=== PATIENT | female | born 1950 | race African-American/Black ===

== ENCOUNTER 2016-04-17 08:36 | Outpatient (CLI) | payer OTHER ==
[2016-04-17 09:30] LABS: eGFR (African) > 60; eGFR (Non-African) > 60
== END 2016-04-17 08:37 ==
LOC: LAB 08:36
PROVIDERS: ATTEND Family Medicine
DX: I10 Essential (primary) hypertension (principal); E78.5 Hyperlipidemia, unspecified; E03.9 Hypothyroidism, unspecified
CPT/HCPCS: 36415; 80053; 80061; 84443

== ENCOUNTER 2016-05-03 14:26 | Inpatient (IN) | payer OTHER ==
[2016-05-03] MEDS ORDERED: IPRATROPIUM/ALBUTEROL SULFATE 3 ML AMPUL.NEB NEB ONE (14:49)
[2016-05-03 15:16] LABS: BASOPHILS % 0.9 (0.0-1.5); EOSINOPHILS % 2.9 % (0.0-6.8); LYMPHOCYTES # 2.9 # k/uL (0.6-4.0); MONOCYTES # 0.4 # k/uL (0.0-0.9); MONOCYTES % 4.9 % (0.0-11.0); NEUTROPHILS # 3.1 # k/uL (1.4-7.7)
[2016-05-03] MEDS ORDERED: ALBUTEROL SULFATE 2.5 MG/3 ML AMPUL.NEB NEB ONE (15:20)
[2016-05-03 15:32] LABS: eGFR (African) > 60; eGFR (Non-African) > 60
[2016-05-03] MEDS ORDERED: 0.9 % SODIUM CHLORIDE 1,000 ML IV ONE (16:16)
--- NOTE | 2016-05-03 16:33 | Diagnostic Imaging Report ---
[facility] [address] [facility].[address] [address] ~ ~ ~ ~ Report Submission Date: May 03, 2016 4:10:03 PM MECHANICAL FACILITIES TECHNICIAN Patient ~ Study Name: CASI MARIE ~ Date: May 03, 2016 3:38:56 PM MECHANICAL FACILITIES TECHNICIAN ~ Modality Type: CR Gender: F ~ Description: CHEST : 50 ~ Institution: [facility] Physician: DIOMEDES DILL ~ ~ ~ ~ 2 views the chest Clinical history: Dyspnea Findings: The heart size within normal limits. There is no pleural the effusion or pneumothorax. There is mild atelectasis or infiltrate left lung base. Impression: Atelectasis or infiltrate in the left lung base ~ Electronically signed on May 03, 2016 4:10:03 PM MECHANICAL FACILITIES TECHNICIAN by: Du WORRELL
[2016-05-03] MEDS ORDERED: LEVOFLOXACIN 500MG/D5W 100ML 500 MG in PREMIX BAG 1 BAG IV ONE ×2 (16:35→18:47)
[2016-05-03] MEDS ORDERED: LEVOFLOXACIN 250MG/D5W 50ML 250 MG in PREMIX BAG 1 BAG IV ONE (16:35)
[2016-05-03] MEDS ORDERED: methylPREDNISolone SOD SUCC 125 MG/2 ML VIAL IVP ONE (17:05)
[2016-05-03] MEDS ORDERED: LEVOFLOXACIN 500MG/D5W 100ML 100 ML IV ONE (17:18)
[2016-05-03] MEDS ORDERED: LEVOFLOXACIN 250MG/D5W 50ML 50 ML IV ONE (17:18)
--- NOTE | 2016-05-03 18:23 | History and Physical Report ---
History of Present Illnes - History of Present Illness Reason for Visit: dyspnea History of Present Illness: 65-year-old -[place] female with a one week history of upper respiratory symptoms. Patient stated over last 2 days she has developed fever, chills and productive cough up some green to yellow phlegm. Patient was having some increasing dyspnea. Patient subsequently came to the emergency room for evaluation. In the emergency room patient was found to be hypoxic with an SaO2 of 85%. Patient was found to have a pulmonary infiltrate. Patient was subsequently admitted to the hospital for further evaluation and treatment. - Past Medical History Cardiac: CAD, HTN Endocrine: Hypothyroidism - Past Surgical History Past Surgical History: Other (Coronary stenting, Breast papilloma removed) - Past Family History Father Family History: Cancer (pancreatic), (67yo) Mother Family History: (dementia) Brother 1 Family History: Cancer (lung), (47yo) - Past Social History Smoke: <1 pack per day Alcohol: None Drugs: None Lives: With Family Domestic Violence: Negative - Health Maintenance Health Maintenance: Tetanus, Influenza Vaccine, Pneumococcal Vaccine Influenza Vaccine: Current for this Influenza Season Pneumonia Vaccine: Yes Resuscitation Status: FULL CODE - Unable to Obtain History Unable to Obtain: No Review of Systems - Review of Systems Constitutional: Fever, Chills, Weakness. negative: Malaise Eyes: negative: pain, vision change, conjunctivae inflammation ENT: Nose Discharge (clear to yellow), Nose Congestion. negative: Ear Pain, Ear Discharge, Nose Pain, Mouth Pain, Mouth Swelling, Throat Pain Respiratory: Cough, Shortness of Breath, SOB with Excertion, Sputum (green), Wheezing. negative: Hemoptysis, Pleuritic Pain Cardiovascular: negative: Chest Pain, Palpitations, Orthopnea, Paroxysmal Noc. Dyspnea, Edema, Light Headedness Gastrointestinal: negative: Nausea, Vomiting, Abdominal Pain, Diarrhea, Constipation, Melena, Hematochezia Genitourinary: negative: Dysuria, Frequency, Incontinence, Hematuria Musculoskeletal: Shoulder Pain Skin: negative: Rash Neurological: negative: Weakness, Numbness, Incoordination, Change in Speech, Confusion, Seizures - Medications/Allergies Allergies/Adverse Reactions: Allergies Allergy/AdvReac Type Severity Reaction Status Date / Time No Known Drug Allergies Allergy Unknown Verified 05/03/16 15:40 Current Inpatient Medications: Current Inpatient Medications Sodium Chloride (Normal Saline) 1,000 mls @ 100 mls/hr IV NOW ONE Stop: 05/04/16 02:15 Last Admin: 05/03/16 17:28 Dose: 100 mls/hr Exam - Exam General: Alert, Oriented to Person, Oriented to Place, Oriented to Time, Cooperative, Moderate distress HEENT: Atraumatic, PERRLA, EOMI, Mouth Mucous membr. moist/[place], Nose Mucous membr. moist/[place], Dentition Normal, Hearing Grossly Normal. No: Pharyngeal Erythema Neck: Normal Range of Motion Carotids: WNL Thyroid: WNL Lungs: Speaks full Sentences, Respiratory Distress, Wheezes, Rales (LLL), Rhonchi (scattered bialat). No: Normal air movement Cardiovascular: Regular rate, Normal S1, Normal S2, No murmurs. No: Gallops, Murmur Abdomen: Normal bowel sounds, Soft, No tenderness, No hepatospenomegaly, No masses. No: Distended Integumentary: Normal, [place], Warm, Dry Extremities: No cyanosis, No edema, Normal pulses, No tenderness/swelling, Other (mild clubbing) Neurological: Normal gait, Normal speech, Strength Equal Bilat, Normal tone, Sensation intact, Cranial nerves 3-12 NL, Reflexes 2+ Psych/Mental Status: Mental status NL, Mood NL, Appropriate Affect, Intact Judgment Assessment/Plan - Assessment/Plan (1) CAP (community acquired pneumonia) Status: Acute Assessment: Will start supplemental oxygen, IV antibiotics, Duoneb treatments. (2) Hypothyroid Status: Chronic Qualifiers: Hypothyroidism type: acquired Qualified Code(s): E03.9 - Hypothyroidism, unspecified Narrative Support Text: continue home med (3) Tobacco dependence Status: Chronic Assessment: Patient will be encourage to stop smoking (4) Essential hypertension Status: Chronic Assessment: continue with home meds VTE Assessment - RISK FACTOR SCORE VTE RISK FACTOR SCORES: AGE 40-60 YEARS, ACUTE RESPIRATORY FAILURE/SEVERE COPD - RISK VTE MODERATE RISK: SCORE OF 2 (RISK PROXIMAL DVT 2-4%) PROPHYAXIS NEEDED
[2016-05-03] MEDS ORDERED: ACETAMINOPHEN 325 MG TABLET PO PRN (18:52)
[2016-05-03] MEDS ORDERED: diphenhydrAMINE HCL 25 MG TABLET PO PRN (18:53)
[2016-05-03] MEDS ORDERED: LATANOPROST 0.005% OPTH DROP OP SCH (19:00)
[2016-05-03] MEDS ORDERED: 0.9 % SODIUM CHLORIDE 250 ML IV ONE (19:36)
[2016-05-03] MEDS ORDERED: AZITHROMYCIN 500 MG VIAL IV ONE (19:36)
[2016-05-03] MEDS ORDERED: ENOXAPARIN SODIUM 30 MG/0.3 ML DISP.SYRIN SQ ONE (19:38)
[2016-05-03 20:29] VITALS: BMI 38.7
[2016-05-03] MEDS: AZITHROMYCIN 500 MG in 0.9 % SODIUM CHLORIDE 250 ML IV SCH (21:27)
[2016-05-03] MEDS: IPRATROPIUM/ALBUTEROL SULFATE 3 ML AMPUL.NEB NEB SCH (21:35)
[2016-05-03] MEDS: ENOXAPARIN SODIUM 30 MG/0.3 ML DISP.SYRIN SQ SCH (21:38)
[2016-05-03] MEDS: methylPREDNISolone SOD SUCC 40 MG/ML VIAL IVP SCH (23:21)
--- NOTE | 2016-05-03 23:54 | ED Physician Documentation ---
Dyspnea - HISTORIAN Historian: patient, other (family) - HPI Stated Complaint: cough, SOA Chief Complaint: Asthma Duration: continues in ED, worse Initiating Event: upper respiratory illness Severity: severe Exacerbated By: exertion, laying flat, coughing Associated Symptoms: chills, fever, productive cough. denies: chest pain, chest discomfort, bloody cough, heart racing, leg pain, calf pain, dizziness, light-headedness, anxiety, hands tingling, face tingling, muscle spasms Further Comments: yes (65 year old female patient presents with complaints of dyspnea, cough, fever and chills. Patient states she has been sick for the past week, but worsein the past 2 days.) - ROS CONST: recent illness EYES/ENT: none GI/: none NEURO/PSYCH: denies: headache MS/SKIN/LYMPH: none - PAST HX Lung Disease: none Cardiac Disease: other (HLD, HTN) PE Risk Factors: hypertension Other History: other (Hypothyroidism, OA) Immunizations: influenza (UTD), pneumovax (UTD), UTD Allergies/Adverse Reactions: Allergies Allergy/AdvReac Type Severity Reaction Status Date / Time No Known Drug Allergies Allergy Unknown Verified 05/03/16 15:40 Home Medications: Ambulatory Orders Medication Instructions Recorded Aspirin [Aspir 81] 81 mg PO DAILY u2 04/12/15 - SOCIAL HX Smoking History: cigarettes - FAMILY HX Family History: denies: none - VITAL SIGNS Vital Signs: Vital Signs Temp Pulse Resp BP Pulse Ox 97.4 F L 75 25 H 159/87 93 05/03/16 18:51 05/03/16 18:51 05/03/16 18:51 05/03/16 18:51 05/03/16 18:51 - REVIEWED ASSESSMENTS Nursing Assessment Reviewed: Yes Vitals Reviewed: Yes Progress - Progress Progress: Reviewed lab and xray results with patient and family. Chest xray with early LL infiltrate, Solumedrol IV started for wheezing. Patient initially preferred transfer to [place], changed her mind and requested admission at [facility] with Dr Albert. Call to Dr Albert, patient accepted. Started on Levaquin IV for pneumonia. Will continue neb treatments and O2 on floor. ED Results Lab/Radiology - Lab Results Lab Results: Lab Results 05/03/16 05/03/16 05/03/16 15:30 15:05 15:05 WBC 7.00 K/ul K/ul (4.00-12.00) RBC 6.16 M/ul H M/ul (3.90-5.20) Hgb 18.4 g/dL H g/dL (12.0-16.0) Hct 52.5 % H % (34.5-46.5) MCV 85.3 fl fl (80.0-100.0) MCH 30.0 pg pg (28.0-34.0) MCHC 35.1 g/dL g/dL (30.0-36.0) RDW 14.8 % H % (11.3-14.3) Plt Count 264 K/mm3 K/mm3 (130-400) Neut % (Auto) 44.7 % % (39.0-79.0) Lymph % (Auto) 41.8 % % (16.0-50.0) [place] % (Auto) 4.9 % % (0.0-11.0) Eos % (Auto) 2.9 % % (0.0-6.8) Baso % (Auto) 0.9 (0.0-1.5) Neut # 3.1 # k/uL # k/uL (1.4-7.7) Lymph # 2.9 # k/uL # k/uL (0.6-4.0) [place] # 0.4 # k/uL # k/uL (0.0-0.9) Eos # 0.2 # k/uL # k/uL (0.0-0.6) Baso # 0.1 # k/uL # k/uL (0.0-0.5) Reactive Lymphs % 4.8 % % (0.0-5.0) Reactive Lymphs # 0.3 # k/uL # k/uL (0.0-0.8) Sodium 138 mmol/L mmol/L (136-145) Potassium 4.1 mmol/L mmol/L (3.5-5.0) Chloride 105 mmol/L mmol/L (98-110) Carbon Dioxide 30 mmol/L mmol/L (20-32) BUN 9 mg/dL L mg/dL (10-26) Creatinine 0.6 mg/dL mg/dL (0.4-1.5) Est GFR ( Amer) > 60 (60 - ) Est GFR (Non-Af Amer) > 60 (60 - ) Glucose 106 mg/dL H mg/dL (70-99) Calcium 9.9 mg/dL mg/dL (8.5-10.5) Total Bilirubin 0.7 mg/dL mg/dL (0.2-1.2) AST 31 U/L U/L (0-41) ALT 22 U/L U/L (0-45) Alkaline Phosphatase 91 U/L U/L (46-116) Total Protein 8.2 g/dL g/dL (6.0-8.5) Albumin 4.6 g/dL g/dL (3.0-5.5) Influenza Type A Ag Negative (NEGATIVE) Influenza Type B Ag Negative (NEGATIVE) - Orders Orders: ED Orders Category Date Time Status Continuous Pulse Oximetry Q4 Care 05/03/16 14:[address] Saline Lock/IV NOW Care 05/03/16 14:49 Active CHEST 2 VIEW [CHEST P.A.&LAT 2 VIEWS] [RAD] Stat Exams 05/03/16 Completed BLOOD CULTURE Stat Lab 05/03/16 15:05 Received BLOOD CULTURE Stat Lab 05/03/16 16:45 Received CBC/PLATELET/DIFF Stat Lab 05/03/16 15:05 Completed CMP Stat Lab 05/03/16 15:05 Completed INFLUENZA A&B Routine Lab 05/03/16 15:30 Completed INFLUENZA A&B Stat Lab 05/03/16 Uncollected 0.9 % Sodium Chloride [Normal Saline] 1,000 ml Med 05/03/16 16:16 Active IV NOW Albuterol Sulfate [Ventolin] Med 05/03/16 15:20 Discontinued 2.5 mg NEB NOW ONE Ipratropium/Albuterol Sulfate [Duoneb] Med 05/03/16 14:49 Discontinued 3 ml NEB NOW ONE Levofloxacin 250Mg/D5w 50Ml [Levaquin] 250 mg Med 05/03/16 16:35 Discontinued Premix Bag [Premix Fluid] 1 bag IV NOW Levofloxacin 250Mg/D5w 50Ml [Levaquin] 50 ml Med 05/03/16 17:18 Discontinued IV .STK-MED Levofloxacin 500Mg/D5w 100Ml [Levaquin] 100 ml Med 05/03/16 17:18 Discontinued IV .STK-MED Levofloxacin 500Mg/D5w 100Ml [Levaquin] 500 mg Med 05/03/16 16:35 Discontinued Premix Bag [Premix Fluid] 1 bag IV NOW methylPREDNISolone SOD SUCC [Solu-MEDROL] Med 05/03/16 17:05 Discontinued 62.5 mg IVP NOW ONE Oxygen Daily Oxygen 05/03/16 15:00 Ordered EKG WITH COMPARISON Stat Ther 05/03/16 14:49 Ordered Dyspnea Physical Exam - EXAM General Appearance: mild distress EENT: eye inspection normal, ENT inspection normal, pharynx normal, no signs of dehydration, SHAHID, no nystagmus, TM's nml Respiratory: no pain on inspiration, speaks full sentences, decreased air movement (bilateral bases), wheezes (bilateral ), other (RA sat 87%, on O2 Sat 93% on 3L) CVS: reg. rate & rhythm, no murmur, no gallop, no friction rub, pulses full, pulses equal Abdomen: non-tender, no organomegaly, no distention, no ascites Skin: color nml, no rash, warm, nml palp., dry Extremities: non-tender, normal range of motion, no evidence of injury, no edema , J, RESEARCH INSTRUMENTATION TECHNICIAN Neuro/Psych: oriented x3, CN's nml as tested, motor nml, sensation nml, mood/ affect nml Discharge Clincal Impression: CAP (community acquired pneumonia), Wheezing Reactive airway disease with wheezing Qualifiers: Asthma severity: mild intermittent Asthma complication type: with acute exacerbation Qualified Code(s): J45.21 - Mild intermittent asthma with (acute) exacerbation Home Medications: Ambulatory Orders Aspirin [Aspir 81] 81 mg PO DAILY u2 04/12/15 Condition: Stable Disposition: ADMITTED INPATIENT Decision to Admit: [id number] Decision Time: 18:00
[2016-05-04] MEDS: IPRATROPIUM/ALBUTEROL SULFATE 3 ML AMPUL.NEB NEB SCH ×6 (01:40→21:41)
[2016-05-04] MEDS: LEVOTHYROXINE SODIUM 25 MCG TABLET PO SCH (05:55)
[2016-05-04] MEDS: LEVOTHYROXINE SODIUM 100 MCG TABLET PO SCH (05:55)
[2016-05-04 07:07] LABS: BASOPHILS % 0.4 (0.0-1.5); EOSINOPHILS % 0.7 % (0.0-6.8); LYMPHOCYTES # 1.3 # k/uL (0.6-4.0); MEAN CORPUSCULAR HEMOGLOBIN 30.4 pg (28.0-34.0); MONOCYTES # 0.4 # k/uL (0.0-0.9); MONOCYTES % 6.5 % (0.0-11.0); NEUTROPHILS # 3.6 # k/uL (1.4-7.7)
[2016-05-04 07:21] LABS: eGFR (African) > 60; eGFR (Non-African) > 60
[2016-05-04] MEDS: LOSARTAN POTASSIUM 50 MG TABLET PO SCH (09:32)
[2016-05-04] MEDS: ASPIRIN EC 81 MG TABLET.DR PO SCH (09:33)
[2016-05-04] MEDS: METOPROLOL TARTRATE 50 MG TABLET PO SCH (09:33)
[2016-05-04] MEDS ORDERED: LEVOFLOXACIN 500MG/D5W 100ML 500 MG in PREMIX BAG 1 BAG IV ONE (10:00)
[2016-05-04] MEDS ORDERED: LEVOFLOXACIN 500MG/D5W 100ML 100 ML IV ONE (10:16)
[2016-05-04] MEDS ORDERED: SALINE FLUSH 10 ML DISP.SYRIN IVF ONE ×3 (10:16→22:03)
[2016-05-04] MEDS: methylPREDNISolone SOD SUCC 40 MG/ML VIAL IVP SCH ×2 (10:19→22:04)
--- NOTE | 2016-05-04 14:05 | Inpatient Progress Note ---
Subjective - Required Recertification Statement I anticipate X number of days because-include discharge plan: 1 - Review of Systems Events since last encounter: patient states that she seemed to be doing better than yesterday. Patient is breathing better. Patient denies any chest pain. Patient has minimal productive cough at this time. Patient not had any fever or chills. Patient continues to have a lot of dyspnea with minimal exertion. Patient states that her hyperlipidemia nebulization treatments do seem to be helping with her breathing. General: Denies: Chills Pulmonary: Dyspnea, Cough. Denies: Pleuritic Chest Pain Cardiovascular: Denies: Chest Pain, Palpitations Gastrointestinal: Denies: Nausea, Vomiting, Melena, Hematochezia Objective - Exam Vitals and I&O: Vital Signs Temp 98.6 F 05/04/16 13:32 Pulse 73 05/04/16 13:32 Resp 20 05/04/16 13:32 BP 149/86 05/04/16 13:32 Pulse Ox 92 05/04/16 13:32 Intake & Output 05/03/16 05/04/16 05/04/16 23:59 11:59 23:59 Intake Total 1120 Balance 1120 Weight 105.687 kg Intake: IV 1000 Right Hand 1000 Oral 120 Other: Voiding Method Toilet # Bowel Movements 0 General: Alert, Oriented to Person, Oriented to Place, Oriented to Time, Cooperative Neck: Supple Lungs: Normal air movement, Speaks full Sentences, Wheezes (mild wit forced expiration), Rales (scatered bilat), Rhonchi (scattered bilaterally) Cardiovascular: Regular rate, Normal S1, Normal S2, No murmurs Abdomen: Soft Skin: Normal, Warm, Dry Psych/Mental Status: Mental status NL - Results Results: Laboratory Results WBC 5.40 K/ul (4.00-12.00) 05/04/16 06:40 RBC 5.53 M/ul (3.90-5.20) H 05/04/16 06:40 Hgb 16.8 g/dL (12.0-16.0) H 05/04/16 06:40 Hct 47.7 % (34.5-46.5) H 05/04/16 06:40 MCV 86.3 fl (80.0-100.0) 05/04/16 06:40 MCH 30.4 pg (28.0-34.0) 05/04/16 06:40 MCHC 35.2 g/dL (30.0-36.0) 05/04/16 06:40 RDW 14.5 % (11.3-14.3) H 05/04/16 06:40 Plt Count 253 K/mm3 (130-400) 05/04/16 06:40 Neut % (Auto) 66.3 % (39.0-79.0) 05/04/16 06:40 Lymph % (Auto) 23.8 % (16.0-50.0) 05/04/16 06:40 [place] % (Auto) 6.5 % (0.0-11.0) 05/04/16 06:40 Eos % (Auto) 0.7 % (0.0-6.8) 05/04/16 06:40 Baso % (Auto) 0.4 (0.0-1.5) 05/04/16 06:40 Neut # 3.6 # k/uL (1.4-7.7) 05/04/16 06:40 Lymph # 1.3 # k/uL (0.6-4.0) 05/04/16 06:40 [place] # 0.4 # k/uL (0.0-0.9) 05/04/16 06:40 Eos # 0.0 # k/uL (0.0-0.6) 05/04/16 06:40 Baso # 0.0 # k/uL (0.0-0.5) 05/04/16 06:40 Reactive Lymphs % 2.3 % (0.0-5.0) 05/04/16 06:40 Reactive Lymphs # 0.1 # k/uL (0.0-0.8) 05/04/16 06:40 Sodium 137 mmol/L (136-145) 05/04/16 06:40 Potassium 3.9 mmol/L (3.5-5.0) 05/04/16 06:40 Chloride 108 mmol/L (98-110) 05/04/16 06:40 Carbon Dioxide 25 mmol/L (20-32) 05/04/16 06:40 BUN 7 mg/dL (10-26) L 05/04/16 06:40 Creatinine 0.5 mg/dL (0.4-1.5) 05/04/16 06:40 Estimated Creat Clear 220 05/04/16 06:40 Est GFR ( Amer) > 60 (60-) 05/04/16 06:40 Est GFR (Non-Af Amer) > 60 (60-) 05/04/16 06:40 Glucose 135 mg/dL (70-99) H 05/04/16 06:40 Calcium 9.0 mg/dL (8.5-10.5) 05/04/16 06:40 Total Bilirubin 0.4 mg/dL (0.2-1.2) 05/04/16 06:40 AST 17 U/L (0-41) 05/04/16 06:40 ALT 20 U/L (0-45) 05/04/16 06:40 Alkaline Phosphatase 83 U/L (46-116) 05/04/16 06:40 Total Protein 7.2 g/dL (6.0-8.5) 05/04/16 06:40 Albumin 3.7 g/dL (3.0-5.5) 05/04/16 06:40 Influenza Type A Ag Negative (NEGATIVE) 05/03/16 15:30 Influenza Type B Ag Negative (NEGATIVE) 05/03/16 15:30 Assessment/Plan - Assessment/Plan (1) CAP (community acquired pneumonia) Status: Acute Current Visit: Yes Assessment: we'll continue with present treatment with high flow nebulization treatments and IV antibiotics. Patient does seem to be making some improvement with this. patient was advised that she may need to go home on oxygen therapy for a short period of time. (2) Essential hypertension Status: Acute Current Visit: Yes Assessment: stable we will continue with home medications.
[2016-05-04] MEDS ORDERED: ENOXAPARIN SODIUM 30 MG/0.3 ML DISP.SYRIN SQ ONE (15:52)
[2016-05-04] MEDS ORDERED: 0.9 % SODIUM CHLORIDE 250 ML IV ONE ×2 (18:04→18:18)
[2016-05-04] MEDS ORDERED: AZITHROMYCIN 500 MG VIAL IV ONE (18:04)
[2016-05-04] MEDS: AZITHROMYCIN 500 MG in 0.9 % SODIUM CHLORIDE 250 ML IV SCH (18:20)
[2016-05-04] MEDS: ENOXAPARIN SODIUM 30 MG/0.3 ML DISP.SYRIN SQ SCH (18:34)
[2016-05-05] MEDS: IPRATROPIUM/ALBUTEROL SULFATE 3 ML AMPUL.NEB NEB SCH ×4 (01:54→16:15)
[2016-05-05] MEDS ORDERED: SALINE FLUSH 10 ML DISP.SYRIN IVF ONE (03:43)
[2016-05-05] MEDS: LEVOTHYROXINE SODIUM 25 MCG TABLET PO SCH (05:48)
[2016-05-05] MEDS: LEVOTHYROXINE SODIUM 100 MCG TABLET PO SCH (05:48)
[2016-05-05 07:06] LABS: BASOPHILS % 0.1 (0.0-1.5); EOSINOPHILS % 0.7 % (0.0-6.8); LYMPHOCYTES # 1.3 # k/uL (0.6-4.0); MEAN CORPUSCULAR HEMOGLOBIN 30.3 pg (28.0-34.0); MONOCYTES # 0.4 # k/uL (0.0-0.9); MONOCYTES % 4.1 % (0.0-11.0); NEUTROPHILS # 7.6 # k/uL (1.4-7.7)
--- NOTE | 2016-05-05 09:14 | Discharge Summary ---
Discharge Summary - Discharge Sumary History of Present Illness: 65-year-old -[place] female with a one week history of upper respiratory symptoms. Patient stated o 2 days prior to admission she developed fever, chills and productive cough up some green to yellow phlegm. Patient was having some increasing dyspnea. Patient subsequently came to the emergency room for evaluation. In the emergency room patient was found to be hypoxic with an SaO2 of 85%. Patient was found to have a pulmonary infiltrate. Patient was subsequently admitted to the hospital for further evaluation and treatment. Condition at Discharge: Stable Home Medications: Ambulatory Orders Medication Instructions Recorded Aspirin [Aspir 81] 81 mg PO DAILY u2 04/12/15 Azithromycin [Zithromax] 250 mg PO DAILY #3 tablet 05/05/16 Fluticasone/Salmeterol [Advair 1 each INH BID #1 ea 05/05/16 500-50 Diskus] Levofloxacin [Levaquin] 500 mg PO D #7 tablet 05/05/16 Consultations this Visit: None Procedures this Visit: None Allergies/Adverse Reactions: Allergies Allergy/AdvReac Type Severity Reaction Status Date / Time No Known Drug Allergies Allergy Unknown Verified 05/03/16 15:40 Discharge Summary: Blood cultures were drawn and subsequently came back no growth. Patient was started on Levaquin and azithromycin IV. Patient was started on high flow nebulization treatments with DuoNeb on a routine basis. Patient breathing status did improve. Patient however remained hypoxemic with ambulation. Patient's hypertension remained stable during the hospitalization. Patient was tested for influenza AB was negative. Patient did have some hyperglycemia during the hospitalization. A1c was 6.1. Patient was subsequently discharged home in stable condition on by mouth antibiotics and supplemental oxygen therapy. - Final Diagnosis (1) CAP (community acquired pneumonia) Problems: Patient did well, was breathing better at discharge, however SAO2 was still running 88% on RA prior to discharge. Did drop to 86% with exertion. (2) Essential hypertension Problems: stable on home meds (3) Hyperglycemia Problems: Patient was advised that her blood sugars were mildly elevated and that she was borderline diabetic. Patient will try to work with her diet and lose weight.
[2016-05-05] MEDS: methylPREDNISolone SOD SUCC 40 MG/ML VIAL IVP SCH (09:58)
[2016-05-05] MEDS: LOSARTAN POTASSIUM 50 MG TABLET PO SCH (10:45)
[2016-05-05] MEDS: ASPIRIN EC 81 MG TABLET.DR PO SCH (10:45)
[2016-05-05] MEDS: METOPROLOL TARTRATE 50 MG TABLET PO SCH (10:45)
[2016-05-05 15:25] VITALS: BP 134/74
[2016-05-06] MEDS ORDERED: ENOXAPARIN SODIUM 30 MG/0.3 ML DISP.SYRIN SQ SCH (09:00)
== END 2016-05-05 13:40 | disposition home or self-care (01) | DRG 195 ==
LOC: ED 14:26 → SOUTH 17:50
PROVIDERS: ADMIT Family Medicine; ATTEND Family Medicine
DX: J18.9 Pneumonia, unspecified organism (principal); I10 Essential (primary) hypertension; R73.9 Hyperglycemia, unspecified
CPT/HCPCS: 36415; 71020; 80053; 83036; 85025; 87040; 87400; 93005; 94640; 94760; 99284; J0456; J1650; J1956; J2920; J2930; J7030; J7050; 99222; 99232; 99238; J1030; S1016

== ENCOUNTER 2016-08-01 10:20 | Outpatient (CLI) | payer OTHER | END 2016-08-01 10:21 | LOC: CARD 10:20 | PROVIDERS: ATTEND Nurse Practitioner | DX: I25.10 Atherosclerotic heart disease of native coronary artery without angina pectoris (principal); I10 Essential (primary) hypertension; E03.9 Hypothyroidism, unspecified; E66.9 Obesity, unspecified; F17.210 Nicotine dependence, cigarettes, uncomplicated | CPT/HCPCS: 93005; G0463 ==

== ENCOUNTER 2017-07-03 08:58 | Outpatient (CLI) | payer OTHER ==
[2017-07-03 10:02] LABS: eGFR (African) > 60; eGFR (Non-African) > 60
== END 2017-07-03 09:05 ==
LOC: LAB 08:58
PROVIDERS: ATTEND Family Medicine
DX: I10 Essential (primary) hypertension (principal); E03.9 Hypothyroidism, unspecified
CPT/HCPCS: 36415; 80053; 80061; 83036; 84443

== ENCOUNTER → 2017-08-17 | Day surgery (SDC) | payer OTHER ==
[~2017-08-17] MED LIST: LACTATED RINGERS 1,000 ML IV.SOLN IV ONE; LIDOCAINE HCL/PF 2% 100 MG/5 ML VIAL IJ ONE; PROPOFOL 500 MG/50 ML VIAL IV ONE; SALINE FLUSH 10 ML DISP.SYRIN IVF ONE
--- NOTE | 2017-08-18 09:32 | GI Report ---
REFERRING PHYSICIAN: Dr. Olu Albert PBX WIRE CHIEF: Beau Salazar MD PROCEDURE MEDICATION: Propofol as per anesthesia. 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 She is coming in for her first colonoscopy. She has some problems with constipation and does take Dulcolax. She does have central obesity. She has been a smoker. PROCEDURE PERFORMED: Colonoscopy and polypectomy. PROCEDURE: An Olympus video colonoscope was advanced to the rectum. An extremely atonic redundant colon. It took some maneuvering and nurse compression to finally reach the cecum. The appendiceal orifice and ileocecal valve appeared normal. At the hepatic flexure, there was a 3 mm polyp removed with a cold snare. The remaining transverse colon appeared normal, though very redundant. The descending colon and sigmoid were very redundant. No obvious intraluminal lesions noted. At the rectosigmoid junction, we removed 3 hyperplastic- appearing polyps. They were kind of sessile, flat, and 3 to 4 mm in size and submitted to pathology. She had a couple smaller hyperplastic-appearing polyps in the rectum. On retroflexion, she does have internal hemorrhoids. The patient did cough during the procedure. She is an abdominal breather. FINDINGS: 1. Four polyps removed, 3 in the rectosigmoid and 1 in the right colon. 2. An atonic redundant colon. RECOMMENDATIONS: 1. Increasing fiber in the diet would be beneficial. 2. Pending the pathology of the polyps, if they are hyperplastic, she could wait 10 years; if they are adenomatous, she needs to be looked at again within 5 years. 3. I recommend strongly she discontinue tobacco usage. cc: Dr. Olu WORRELL
== END ==
LOC: OPSURG 10:01
PROVIDERS: ATTEND Internal Medicine Gastroenterology
DX: Z12.11 Encounter for screening for malignant neoplasm of colon (principal); K63.5 Polyp of colon
CPT/HCPCS: 88305; J2001; J2704; J7120; 45385; S1016

== ENCOUNTER 2018-01-28 11:21 | Outpatient (CLI) | payer OTHER ==
[2018-01-28 11:38] LABS: BASOPHILS % 0.7 (0.0-1.5); EOSINOPHILS % 0.9 % (0.0-6.8); MEAN CORPUSCULAR HEMOGLOBIN 30.2 pg (28.0-34.0); MONOCYTES % 10.2 % (0.0-11.0); NEUTROPHILS # 5.8 # k/uL (1.4-7.7)
--- NOTE | 2018-01-28 12:33 | Diagnostic Imaging Report ---
NATHALY REYES [facility] [address] [facility].[address] [address] Report Submission Date: Jan 28, 2018 11:53:21 AM CDT Patient Study Name: CASI MARIE Date: Jan 28, 2018 11:27:24 AM CDT Modality Type: DX Gender: F Description: CHEST : 50 Institution: [facility] Physician: NATHALY REYES PA and lateral chest History: Cough PA and lateral chest dated January 28, 2018 is without prior radiographs for comparison. There is an abnormal density in the right paratracheal region. Heart size is normal. Pulmonary vascularity is normal. There is no confluent infiltrate or pleural effusion. Impression: There is an abnormal radiodensity in the right paratracheal region. An underlying mass or adenopathy would not be excluded. Chest CT would be recommended with IV contrast for further assessment. Electronically signed on Jan 28, 2018 11:53:21 AM CDT by: Lilo WORRELL
[2018-01-28 18:31] LABS: TOTAL PROTEIN 7.3 g/dL (6.0-8.5)
== END 2018-01-28 11:22 ==
LOC: LAB 11:21
PROVIDERS: ATTEND Family Medicine
DX: J40 Bronchitis, not specified as acute or chronic (principal)
CPT/HCPCS: 36415; 71046; 80053; 85025

== ENCOUNTER 2018-02-02 10:28 | Outpatient (CLI) | payer OTHER ==
--- NOTE | 2018-02-02 12:17 | Diagnostic Imaging Report ---
NATHALY REYES [facility] [address] [facility].[address] [address] Report Submission Date: Feb 02, 2018 11:50:09 AM COATING OPERATOR Patient Study Name: CASI MARIE Date: Feb 02, 2018 10:52:50 AM COATING OPERATOR Modality Type: CT Gender: F Description: CT CHEST W/ CONTRAST : 50 Institution: [facility] Physician: NATHALY REYES CT chest with contrast History: Abnormal chest x-ray results. Cough and shortness of breath. Technique: Helically acquired images were obtained through the chest following IV contrast and comparison made with chest radiograph from January 28, 2018. Findings: Just posterior to the superior vena cava, there is a large and heavily calcified lymph node measuring 3 x 2.4 cm. This large lymph node would account for the abnormal chest radiograph finding. There are a few small prevascular nodes with the largest measuring 9 mm in short axis dimension. There are a few small bilateral hilar nodes which all measure less than a cm in greatest dimension. There is no pericardial or pleural effusion. There is a left adrenal mass measuring 2.3 cm in greatest dimension but internal Hounsfield units are consistent with an adrenal adenoma. Otherwise, visualized structures within the upper abdomen are unremarkable. There is mild atherosclerotic calcification of the aortic arch but the abdominal aorta is otherwise normal in caliber. Mild degenerative findings are present at the mid and lower thoracic spine. There are a few scattered, tiny granulomata within the lungs bilaterally. No suspicious lung masses are noted. There is no parenchymal infiltrate. Impression: Old granulomatous disease. The abnormal radiographic finding represents a heavily calcified right paratracheal lymph node consistent with old granulomatous disease. Small prevascular and bilateral hilar nodes are present. There are a few tiny scattered granulomata of the lungs bilaterally. Left adrenal nodule as described in the body of the report and consistent with an adrenal adenoma by Hounsfield units. Electronically signed on Feb 02, 2018 11:50:09 AM COATING OPERATOR by: Lilo WORRELL
== END 2018-02-02 10:30 ==
LOC: RAD 10:28
PROVIDERS: ATTEND Family Medicine
DX: R91.1 Solitary pulmonary nodule (principal)
CPT/HCPCS: 71260; Q9967

== ENCOUNTER 2018-03-12 09:32 | Outpatient (CLI) | payer OTHER | END 2018-03-12 09:40 | LOC: LAB 09:32 | PROVIDERS: ATTEND Internal Medicine Cardiovascular Disease | DX: E03.9 Hypothyroidism, unspecified (principal); E78.00 Pure hypercholesterolemia, unspecified; I10 Essential (primary) hypertension; I25.10 Atherosclerotic heart disease of native coronary artery without angina pectoris | CPT/HCPCS: 36415; 80061; 84439; 84443 ==

== ENCOUNTER 2019-03-22 14:06 | Outpatient (CLI) | payer OTHER ==
--- NOTE | 2019-03-24 10:17 | Diagnostic Imaging Report ---
PATIENT MR#: [id number] PATIENT PATIENT NAME: CASI MARIE DATE OF : 1950 REFERRING PHYSICIAN: Olu Albert EXAM DATE: 03/24/2019 ACCESSION NUMBER: [id number] EXAM DESCRIPTION: CLARISSA ADDENDUM: Exam: Ankle brachial index. History: Peripheral vascular disease. Blood pressures in both arms and both ankles are obtained. The ankle brachial index utilizing the po sterior tibial artery is 0.96 on the right and 1.1 on the left. Ankle brachial index utilizing the dorsalis pedis a rtery is 0.95 on the right and 0.8 on the left. Toe pressures are not obtained. Pulse volume recordings are mildly blunted on the right is compared to the left. Impression: No significant stenosis is identified. Exam: Ankle brachial index. History: Peripheral vascular disease. Blood pressures are not obtainable. Impression: Ankle brachial indices could not be computed. Read by: Dr. Dexter Messina Transcribed by: Transcribed Date: Electronically signed by: Dr. Dexter Messina Date signed: 03/24/2019 11:07:10 AM
== END 2019-03-22 14:16 ==
LOC: RAD 14:06
PROVIDERS: ATTEND Family Medicine
DX: I73.9 Peripheral vascular disease, unspecified (principal)